=== PATIENT | male | born 1990 | race American Indian/Alaskan Native ===

== ENCOUNTER 2021-10-07 13:02 | Emergency (ER) | payer SELFPAY ==
[2021-10-07 14:34] VITALS: BP 117/74
--- NOTE | 2021-10-07 14:46 | Emergency Department Report ---
ED General Adult HPI - General Chief complaint: Nausea/Vomiting/Diarrhea Stated complaint: VOMITING/BODY PAIN/FEVER Time Seen by Provider: 10/07/21 14:45 Source: patient Mode of arrival: Ambulatory Limitations: No Limitations - History of Present Illness Initial comments: 31 year old male with no significant past medical hx presents to ED with complaints of n/v/d chills. Onset last night. He reports associated generalized body aches. He reports no abd pain, URI symptoms or cough, UTI symptoms, hematemesis, hematochezia or melena. He denies ill contacts. He denies any recent travel. He denies any recent antibiotic use or bad food intake. He denies illicit drug use, or alcohol abuse. He has been vaccinated against COVID 19. Complaint: n/v/d chills -: days(s) (1) Severity scale (0 -10): 6 - Related Data Previous Rx's Medication Instructions Recorded Last Taken Type Diphenoxylate/Atropine [Lomotil] 1 tab PO Q4H PRN #15 10/07/21 Unknown Rx Ibuprofen [Motrin] 600 mg PO Q8H PRN #30 tablet 10/07/21 Unknown Rx Ondansetron [Zofran Odt] 4 mg PO Q8HR PRN #15 tab.rapdis 10/07/21 Unknown Rx Allergies Allergy/AdvReac Type Severity Reaction Status Date / Time No Known Allergies Allergy Verified 03/23/16 08:27 ED Review of Systems ROS: Stated complaint: VOMITING/BODY PAIN/FEVER Other details as noted in HPI Comment: All other systems reviewed and negative Constitutional: chills Gastrointestinal: nausea, vomiting, diarrhea Musculoskeletal: myalgia ED Past Medical Hx - Past Medical History Previous Medical History?: No - Surgical History Past Surgical History?: No - Social History Smoking Status: Current Some Day Smoker Substance Use Type: None - Medications Home Medications: Home Medications Medication Instructions Recorded Confirmed Last Taken Type Diphenoxylate/Atropine [Lomotil] 1 tab PO Q4H PRN #15 10/07/21 Unknown Rx Ibuprofen [Motrin] 600 mg PO Q8H PRN #30 tablet 10/07/21 Unknown Rx Ondansetron [Zofran Odt] 4 mg PO Q8HR PRN #15 tab.rapdis 10/07/21 Unknown Rx ED Physical Exam - General Limitations: No Limitations General appearance: alert, in no apparent distress - Head Head exam: Present: atraumatic, normocephalic, normal inspection - Eye Eye exam: Present: normal appearance, PERRL, EOMI Pupils: Present: normal accommodation - ENT ENT exam: Present: mucous membranes dry (mild ) - Neck Neck exam: Present: normal inspection, full ROM. Absent: meningismus - Respiratory Respiratory exam: Present: normal lung sounds bilaterally. Absent: respiratory distress, wheezes, rales, rhonchi, stridor - Cardiovascular Cardiovascular Exam: Present: regular rate, normal rhythm, normal heart sounds - GI/Abdominal GI/Abdominal exam: Present: soft. Absent: distended, tenderness, guarding - Neurological Exam Neurological exam: Present: alert, oriented X3, CN II-XII intact, normal gait - Psychiatric Psychiatric exam: Present: normal affect, normal mood - Skin Skin exam: Present: intact ED Course Vital Signs 10/07/21 10/07/21 14:33 14:34 Temperature 99.4 F 99.4 F Pulse Rate 96 H 96 H Respiratory 18 18 Rate Blood Pressure 117/74 Blood Pressure 117/74 [Right] O2 Sat by Pulse 100 100 Oximetry ED Medical Decision Making - Medical Decision Making 31 year old male with no significant past medical hx presents to ED with complaints of n/v/d chills. Onset last night. He reports associated generalized body aches. He reports no abd pain, URI symptoms or cough, UTI symptoms, hematemesis, hematochezia or melena. He denies ill contacts. He denies any recent travel. He denies any recent antibiotic use or bad food intake. He denies illicit drug use, or alcohol abuse. He has been vaccinated against COVID 19. 1506: Patient is well-appearing and nontoxic not in any significant distress. He is not significantly dehydrated. Abdomen soft and nontender. Chest clear to auscultation. His vital signs are stable. Suspect a viral illness at this time. Emergent labs or imaging not indicated at this time. patient will be treated clinically for symptoms, and recommend that he follows a bland diet and drink lots of fluids. Discussed suspected diagnosis and treatment plan with patient. Patient expressed understanding agree with plan. Patient was stable at time of discharge Critical care attestation.: If time is entered above; I have spent that time in minutes in the direct care of this critically ill patient, excluding procedure time. ED Disposition Clinical Impression: Vomiting and diarrhea, Viral illness Disposition: 01 HOME / SELF CARE / HOMELESS Is pt being admited?: No Does the pt Need Aspirin: No Condition: Stable Instructions: Nausea and Vomiting, Adult, [id number], Viral Illness, Adult, Diarrhea, Adult, [id number], [place] Diet Additional Instructions: Take medications as prescribed help your symptoms. I recommend that you try to maintain hydration by drinking fluids including Pedialyte, Gatorade, vitamin water, and water. Recommend that you follow the bland diet instructions listed on your discharge instructions for the next 2 days. Follow-up with your primary care doctor. Return to ER if your symptoms changes or worsens in any way. Prescriptions: Diphenoxylate/Atropine [Lomotil] 1 tab PO Q4H PRN #15 PRN Reason: Diarrhea Ibuprofen [Motrin] 600 mg PO Q8H PRN #30 tablet PRN Reason: Pain Ondansetron [Zofran Odt] 4 mg PO Q8HR PRN #15 tab.rapdis PRN Reason: Vomiting Referrals: ANETTE SNYDER MD [Staff Physician] - 3-5 Days Forms: Work/School Release Form(ED) Time of Disposition: 15:02
[2021-10-07] MEDS ORDERED: IBUPROFEN 600 MG TAB PO ONE (14:56)
[2021-10-07] MEDS ORDERED: ONDANSETRON 4 MG ODT TAB PO ONE (14:56)
[2021-10-07] MEDS ORDERED: DIPHENOXYLATE/ATROPINE TAB PO ONE (14:56)
== END 2021-10-07 15:48 | disposition home or self-care (01) ==
LOC: ED 13:02
DX: B34.9 Viral infection, unspecified (principal); R11.2 Nausea with vomiting, unspecified; R19.7 Diarrhea, unspecified; F17.200 Nicotine dependence, unspecified, uncomplicated
CPT/HCPCS: 99282; J3490; Q0162